=== PATIENT | male | born 1980 | race Native Hawaiian/Other Pacific Islander ===

== ENCOUNTER 2019-09-06 20:30 | Emergency (ER) | payer OTHER ==
[~2019-09-06] VITALS: Ht 180.3 cm; Wt 72.1 kg
[2019-09-06 21:07] LABS: PLATELET COUNT 215 K/uL (142-355)
[2019-09-06 21:36] LABS: POTASSIUM 4.4 mmol/L (3.6-5.2); SODIUM 140 mmol/L (136-145)
[2019-09-06 22:45] VITALS: BP 128/74; TEMP 97.2
== END 2019-09-06 22:45 | disposition home or self-care (01) ==
LOC: ED 20:30
PROVIDERS: Student in an Organized Health Care Education/Training Program
DX: R53.1 Weakness (principal)
CPT/HCPCS: 36415; 80053; 80307; 81000; 83690; 83735; 84443; 84484; 85027; 87490; 87590; 93005; 96360; 96375; 99284; J1885

== ENCOUNTER 2020-02-26 14:34 | Emergency (ER) | payer OTHER ==
[~2020-02-26] VITALS: Ht 180.3 cm; Wt 72.1 kg
[2020-02-26 15:49] VITALS: BP 107/89; TEMP 98.1
== END 2020-02-26 15:50 | disposition home or self-care (01) ==
LOC: ED 14:34
DX: S92.411A Displaced fracture of proximal phalanx of right great toe, initial encounter for closed fracture (principal); W22.8XXA Striking against or struck by other objects, initial encounter; Y92.89 Other specified places as the place of occurrence of the external cause
CPT/HCPCS: 96372; 99283; J1885